=== PATIENT | female | born 1945 | race Caucasian/White ===

== ENCOUNTER → 2017-09-11 | Outpatient (CLI) | payer MEDICARE ==
[~2017-09-11] MED LIST: CALTRATE; CLAR1TAB2 PO; CLAR5TAB PO; FLON0.054; FLUC10TA; IBUPOTC PO; LIPI10TA; LORT5TAB PO; MULTIVIT; OMEP40CA2 PO; TYLE325T5 PO; TYLENOL ELIXIR; ZOCO20TA PO; ZOLO50TA OR; [UNRECOGNIZED DRUG - OTHER]
[2017-09-11 10:26] LABS: BLOOD UREA NITROGEN 11 MG/DL (7-18); CREATININE FOR GFR 0.71 MG/DL (0.55-1.02); GLOMERULAR FILTRATION RATE > 60.0 (>45)
== END ==
LOC: M LAB 09:20
PROVIDERS: ATTEND Surgery
DX: K43.2 Incisional hernia without obstruction or gangrene (principal)

== ENCOUNTER → 2017-10-02 | Outpatient (CLI) | payer MEDICARE ==
[~2017-10-02] MED LIST changes: -CALTRATE; -CLAR1TAB2 PO; -CLAR5TAB PO; -FLON0.054; -FLUC10TA; +GASTROGRAFIN SOLUTION 30ML (Q9963) As Ordered; -IBUPOTC PO; +ISOVUE-370 76% 100ML VIAL (Q9967) As Ordered; -LIPI10TA; -LORT5TAB PO; -MULTIVIT; -OMEP40CA2 PO; -TYLE325T5 PO; -TYLENOL ELIXIR; -ZOCO20TA PO; -ZOLO50TA OR; -[UNRECOGNIZED DRUG - OTHER]
== END ==
LOC: M RAD 10:55
DX: K43.2 Incisional hernia without obstruction or gangrene (principal); K57.90 Diverticulosis of intestine, part unspecified, without perforation or abscess without bleeding
CPT/HCPCS: Q9963

== ENCOUNTER → 2018-04-29 | Outpatient (CLI) | payer MEDICARE ==
[2018-04-29 13:34] LABS: BLOOD UREA NITROGEN 16 MG/DL (7-18)
[2018-04-29 13:34] LABS: CREATININE FOR GFR 0.79 MG/DL (0.55-1.30); GLOMERULAR FILTRATION RATE > 60.0 (>39)
== END ==
LOC: M LAB 12:17
DX: R10.32 Left lower quadrant pain (principal); K43.2 Incisional hernia without obstruction or gangrene
CPT/HCPCS: 82565

== ENCOUNTER → 2018-05-02 | Outpatient (CLI) | payer MEDICARE | LOC: M RAD 15:45 | DX: R10.32 Left lower quadrant pain (principal); K43.2 Incisional hernia without obstruction or gangrene; K44.9 Diaphragmatic hernia without obstruction or gangrene; K57.30 Diverticulosis of large intestine without perforation or abscess without bleeding; M62.00 Separation of muscle (nontraumatic), unspecified site | CPT/HCPCS: Q9963 ==

== ENCOUNTER 2019-07-21 05:49 | Inpatient (IN) | payer MEDICARE ==
[~2019-07-21] VITALS: Ht 157.5 cm; Wt 80.9 kg
[2019-07-21] VITALS (7 sets, daily range): BP systolic 124–138; BP diastolic 77–79
[~2019-07-21 05:49] MED LIST changes: +CALTRATE; +CLAR1TAB2 PO; +CLAR5TAB PO; +FLON0.054; +FLUC10TA; -GASTROGRAFIN SOLUTION 30ML (Q9963) As Ordered; +IBUPOTC PO; -ISOVUE-370 76% 100ML VIAL (Q9967) As Ordered; +LIPI10TA; +LORT5TAB PO; +MECL-86 PO; +MULTIVIT; +OMEP40CA97 PO; +TYLE325T5 PO; +TYLENOL ELIXIR; +ZOCO20TA PO; +ZOLO50TA PO; +[UNRECOGNIZED DRUG - OTHER]
[2019-07-21] MEDS ORDERED: ceFAZolin SOD 1 GM in D5W MINI-BAG PLUS 50 ML IV ONE (06:00)
[2019-07-21 06:27] LABS: HEMATOCRIT 40.5 % (36.0-47.0); HEMOGLOBIN 12.9 g/dl (12.0-15.5); MEAN CORPUSCULAR HEMOGLOBIN 26.4 pg (27.0-33.0); MEAN CORPUSCULAR HGB CONC 31.9 g/dl (32.0-36.5); MEAN CORPUSCULAR VOLUME 82.8 fl (80.0-96.0); PLATELET COUNT, AUTOMATED 242 10^3/uL (150-450); RED BLOOD COUNT 4.89 10^6/uL (4.00-5.40); WHITE BLOOD COUNT 6.2 10^3/uL (4.0-10.0)
[2019-07-21 06:53] LABS: BLOOD UREA NITROGEN 13 MG/DL (7-18); CALCIUM LEVEL 8.5 MG/DL (8.8-10.2); CARBON DIOXIDE LEVEL 29 MEQ/L (21-32); CHLORIDE LEVEL 108 MEQ/L (98-107); GLOMERULAR FILTRATION RATE > 60.0 (>39); GLUCOSE, FASTING 94 MG/DL (70-100); POTASSIUM SERUM 4.1 MEQ/L (3.5-5.1); SODIUM LEVEL 142 MEQ/L (136-145)
[2019-07-21] MEDS ORDERED: BUPIVACAINE HCL 0.25% 30 ML VIAL As Ordered ONE (06:55)
[2019-07-21] MEDS ORDERED: BUPIVACAINE LIPOSOME/PF 1.3% 20ML VIAL (13.3MG/ML)(EXPAREL)(C9290 PER1MG) As Ordered ONE (06:55)
[2019-07-21] MEDS ORDERED: BUPIVACAINE/EPIN 0.25% 30 ML VIAL As Ordered ONE (06:55)
[2019-07-21] MEDS ORDERED: LIDOCAINE 2% INJ 100 MG/5 ML SDV (FOR ANES.) As Ordered ONE (07:16)
[2019-07-21] MEDS ORDERED: PROPOFOL 200 MG/20 ML VIAL As Ordered ONE ×2 (07:16→07:21)
[2019-07-21] MEDS ORDERED: fentaNYL 100 MCG/2 ML INJECTION (J3010) As Ordered ONE ×3 (07:16→09:33)
[2019-07-21] MEDS ORDERED: ONDANSETRON 4MG/2ML VIAL (J2405) As Ordered ONE ×2 (07:17→10:09)
[2019-07-21] MEDS ORDERED: ROCURONIUM BROMIDE 50 MG/5 ML VIAL As Ordered ONE ×2 (07:17→08:52)
[2019-07-21] MEDS ORDERED: dexameTHASONE 4 MG/ML 1ML VIAL (J1100) As Ordered ONE (07:17)
[2019-07-21] MEDS ORDERED: ePHEDrine SULFATE 25 MG/5 ML(5MG/ML) SYRINGE As Ordered ONE (07:55)
[2019-07-21] MEDS ORDERED: ACETAMINOPHEN 1000MG 100ML IV BTL (OFIRMEV) (J0131 PER 10MG) As Ordered ONE (08:13)
[2019-07-21] MEDS ORDERED: SUGAMMADEX SODIUM 500 MG/5 ML VIAL (BRIDION) As Ordered ONE (09:54)
[2019-07-21] MEDS ORDERED: ACETAMINOPHEN TAB 650MG DOSE (2X325MG) PO PRN (10:15)
[2019-07-21] MEDS ORDERED: NALOXONE INJ 0.4 MG/1 ML VIAL (J2310) IV PRN (10:15)
[2019-07-21] MEDS ORDERED: diphenhydrAMINE INJ 50MG/ML VIAL (J1200) IV PRN (10:15)
[2019-07-21] MEDS ORDERED: EPIDURAL/PCA KEYS XX PRN (10:15)
[2019-07-21] MEDS ORDERED: NALBUPHINE HCL 10 MG/ML AMP (J2300) IV PRN (10:15)
[2019-07-21] MEDS ORDERED: ONDANSETRON 4MG/2ML VIAL (J2405) IV PRN ×2 (10:15→11:00)
[2019-07-21] MEDS ORDERED: MORPHINE 1MG/ML IN 0.9% NACL 100ML IV BAG As Ordered ONE ×2 (10:17→10:23)
[2019-07-21] MEDS ORDERED: fentaNYL 100 MCG/2 ML INJECTION (J3010) IV PRN (11:00)
[2019-07-21] MEDS ORDERED: NS 1,000 ML IV SCH (11:00)
[2019-07-21] MEDS ORDERED: LR 1,000 ML IV SCH (11:00)
[2019-07-21] MEDS ORDERED: PERCOCET 5MG/325MG TAB PO PRN (11:00)
[2019-07-21] MEDS ORDERED: METOCLOPRAMIDE INJ 10MG/2ML VIAL (J2765) IV PRN (11:00)
[2019-07-21] MEDS ORDERED: MORPHINE 1MG/ML IN 0.9% NACL 100ML IV BAG IV PRN (11:00)
[2019-07-21] MEDS: KETOROLAC 30 MG/ML VIAL (J1885) IV SCH ×2 (13:17→17:56)
[2019-07-21] MEDS: PANTOPRAZOLE 40MG INJ (PROTONIX) (C9113) IV SCH (13:17)
[2019-07-21] MEDS: NS 1,000 ML IV SCH ×2 (13:18→20:57)
[2019-07-21] MEDS: ALVIMOPAN 12 MG CAPSULE (ENTEREG) PO SCH (20:57)
[2019-07-22] MEDS: KETOROLAC 30 MG/ML VIAL (J1885) IV SCH ×4 (00:41→17:56)
[2019-07-22 01:49] VITALS: BP 139/79
[2019-07-22] MEDS: NS 1,000 ML IV SCH (05:21)
[2019-07-22 06:00] VITALS: BP 139/80
[2019-07-22 06:16] LABS: HEMATOCRIT 34.9 % (36.0-47.0); HEMOGLOBIN 11.1 g/dl (12.0-15.5); MEAN CORPUSCULAR HEMOGLOBIN 26.5 pg (27.0-33.0); MEAN CORPUSCULAR HGB CONC 31.8 g/dl (32.0-36.5); MEAN CORPUSCULAR VOLUME 83.3 fl (80.0-96.0); PLATELET COUNT, AUTOMATED 182 10^3/uL (150-450); RED BLOOD COUNT 4.19 10^6/uL (4.00-5.40); WHITE BLOOD COUNT 7.3 10^3/uL (4.0-10.0)
[2019-07-22 06:42] LABS: BLOOD UREA NITROGEN 11 MG/DL (7-18); CALCIUM LEVEL 8.1 MG/DL (8.8-10.2); CARBON DIOXIDE LEVEL 28 MEQ/L (21-32); CHLORIDE LEVEL 108 MEQ/L (98-107); CREATININE FOR GFR 0.67 MG/DL (0.55-1.30); GLOMERULAR FILTRATION RATE > 60.0 (>39); GLUCOSE, FASTING 113 MG/DL (70-100); POTASSIUM SERUM 3.6 MEQ/L (3.5-5.1); SODIUM LEVEL 141 MEQ/L (136-145)
[2019-07-22] MEDS ORDERED: traMADol 50 MG TAB PO PRN (08:45)
[2019-07-22 10:00] VITALS: BP 139/78
[2019-07-22] MEDS: PANTOPRAZOLE 40MG INJ (PROTONIX) (C9113) IV SCH (10:44)
[2019-07-22] MEDS: ALVIMOPAN 12 MG CAPSULE (ENTEREG) PO SCH ×2 (10:44→21:13)
[2019-07-22 14:00] VITALS: BP 163/84
[2019-07-22 20:00] VITALS: BP 124/56
[2019-07-22 21:25] VITALS: BP 180/68
[2019-07-23 05:41] VITALS: BP 156/62
[2019-07-23 06:14] LABS: HEMATOCRIT 37.3 % (36.0-47.0); HEMOGLOBIN 11.9 g/dl (12.0-15.5); MEAN CORPUSCULAR HEMOGLOBIN 26.6 pg (27.0-33.0); MEAN CORPUSCULAR HGB CONC 31.9 g/dl (32.0-36.5); MEAN CORPUSCULAR VOLUME 83.4 fl (80.0-96.0); PLATELET COUNT, AUTOMATED 183 10^3/uL (150-450); RED BLOOD COUNT 4.47 10^6/uL (4.00-5.40); WHITE BLOOD COUNT 7.5 10^3/uL (4.0-10.0)
[2019-07-23 06:40] LABS: BLOOD UREA NITROGEN 7 MG/DL (7-18); CALCIUM LEVEL 8.5 MG/DL (8.8-10.2); CARBON DIOXIDE LEVEL 27 MEQ/L (21-32); CHLORIDE LEVEL 104 MEQ/L (98-107); CREATININE FOR GFR 0.54 MG/DL (0.55-1.30); GLOMERULAR FILTRATION RATE > 60.0 (>39); GLUCOSE, FASTING 96 MG/DL (70-100); POTASSIUM SERUM 3.2 MEQ/L (3.5-5.1); SODIUM LEVEL 138 MEQ/L (136-145)
[2019-07-23] MEDS: PANTOPRAZOLE 40MG INJ (PROTONIX) (C9113) IV SCH ×2 (09:00→09:50)
[2019-07-23] MEDS: ALVIMOPAN 12 MG CAPSULE (ENTEREG) PO SCH (09:50)
[2019-07-23 10:28] VITALS: BP 179/90
[2019-07-23] MEDS ORDERED: ACET1TAB55 PO (10:37)
--- NOTE | 2019-08-04 20:02 | DSES ---
DATE OF ADMISSION: 07/21/2019 DATE OF DISCHARGE: 07/23/2019 PRINCIPLE DIAGNOSIS: Incisional hernia. ASSOCIATED DIAGNOSES: 1. History of hypercholesterolemia. 2. Gastroesophageal reflux. 3. Vertigo. 4. Appendectomy. 5. Cholecystectomy. 6. Hernia repairs. 7. Anxiety. BRIEF HISTORY OF PRESENT ILLNESS: Patient is a 73-year-old female who presents with a recurrent incisional hernia along the midline with increasing symptoms, increasing size of the hernia and pain and discomfort. HOSPITAL COURSE SUMMARY: The patient was admitted with the above diagnosis. Given the relatively large hernia, this was closed in a combined open technique as well as a laparoscopic hybrid operation. Essentially, the patient tolerated the procedure adequately and postoperatively she had good pain relief. She was discharged home on her usual medications, which include the following: - Flonase - meclizine - omeprazole - Zoloft - Zocor - She was taking only Tylenol for discomfort at discharge She was to follow up in my office for in one week for suture removal and follow up with her primary care provider as previously scheduled.
--- NOTE | 2019-08-04 20:24 | RO ---
DATE OF PROCEDURE: 07/21/2019 PREOPERATIVE DIAGNOSIS: Incisional hernia. POSTOPERATIVE DIAGNOSIS: Incisional hernia. OPERATIVE PROCEDURE: 1. Open laparotomy with lysis of adhesions. 2. Laparoscopic ventral hernia repair. SURGEON: Keven Cruz MD D[employer] OUT WORKER: ANESTHESIA: General endotracheal anesthesia. ESTIMATED BLOOD LOSS: Minimal. FLUIDS: Crystalloid. DESCRIPTION OF PROCEDURE: The patient was brought to the operating room was given general anesthesia. After adequate anesthesia and preoperative antibiotics were given the patient was prepped and draped in the usual sterile fashion. Next a midline incision including the previous incision was made with skin knife. Electrocautery was used cut through dermis, underlying subcutaneous tissue down to the hernia sac itself. This was followed laterally and then mobilized off the muscle on the rectus muscle on the left-hand side and then off the mesh that was more medially, which had been lifted off the rectus muscle laterally. This was followed inferiorly and superiorly and eventually once I was able to get around this adequately, I was able to get into the peritoneal cavity. However, there were a great deal of adhesions along the midline and I did need to leave some of the fascia, some scar tissue with this area on the bowel itself taking care of not to leave any mesh or any other significant abnormality present on the bowel. The dissection continued inferiorly where there was mesh covering as an onlay but there was no posterior fascia that was approximated in the middle. In any case, the dissection continued inferiorly and then eventually I was able to pop into the true peritoneal cavity. Originally I anticipate that most of the dissection was inflamed/scar tissue and maybe even preperitoneal space, but eventually after coming inferior in the left lower quadrant down into the pelvis, the peritoneum was nicely seen and it was followed circumferentially all around the incision and this was brought down nicely throughout. Eventually after a significant amount of time taking down a lot of adhesions, at this point it seemed that the midline could come together without undue tension and I felt that she would benefit from not a repeat of the onlay mesh but a preperitoneal approach and thus placing a laparoscopic mesh underneath a midline closure. Thus a 5 mm lateral trocar was placed under direct visualization to allow for insufflation and placement of the other trocars and then the midline was closed in a running manner with looped #0 PDS. Once this was closed the lateral trocars were placed and a ventral light mesh which had been placed in there previously prior to closure of the fascia was sewn in place with secure straps circumferentially. All trocars removed under direct visualization and the midline incision then was closed in two layers with #2-0 Vicryl, deep layer and tono. Tono were used to approximate the skin laterally and the patient was awakened, extubated, brought to the recovery room awake, alert and hemodynamically stable. Sponge and needle counts correct times two.
== END 2019-07-23 12:40 | disposition home or self-care (01) | DRG 355 ==
LOC: M OR 05:49 → M MS5PR 12:30
PROVIDERS: ADMIT Surgery; ATTEND Surgery
PROC: 0WUF0JZ Supplement Abdominal Wall with Synthetic Substitute, Open Approach (ICD-10-PCS; principal; 2019-07-21 07:30)
DX: K43.2 Incisional hernia without obstruction or gangrene (principal); E78.00 Pure hypercholesterolemia, unspecified; F41.9 Anxiety disorder, unspecified

== ENCOUNTER 2019-07-30 17:23 | Emergency (ER) | payer MEDICARE ==
[~2019-07-30] VITALS: Ht 157.5 cm; Wt 77.0 kg
[~2019-07-30 17:23] MED LIST changes: +ACET1TAB55 PO
[2019-07-30] MEDS ORDERED: NAPR220C14 PO (17:45)
[2019-07-30] MEDS ORDERED: HYDROMORPHONE HCL 0.5 MG/ 0.5 ML SYRINGE (J1170 PER 1) IV PRN (18:45)
[2019-07-30 18:53] LABS: BASO % 0.4 % (0.0-1.0); EOS # 0.1 10^3/uL (0.0-0.5); EOS % 1.2 % (0.0-3.0); HEMATOCRIT 39.2 % (36.0-47.0); HEMOGLOBIN 12.5 g/dl (12.0-15.5); LYMPH # 1.2 10^3/uL (1.5-5.0); LYMPH % 16.3 % (24.0-44.0); MEAN CORPUSCULAR HEMOGLOBIN 26.7 pg (27.0-33.0); MEAN CORPUSCULAR HGB CONC 31.9 g/dl (32.0-36.5); MEAN CORPUSCULAR VOLUME 83.6 fl (80.0-96.0); MONO # 0.5 10^3/uL (0.0-0.8); NEUTROPHILS # 5.4 10^3/uL (1.5-8.5); NEUTROPHILS % 74.5 % (36.0-66.0); PLATELET COUNT, AUTOMATED 273 10^3/uL (150-450); RED BLOOD COUNT 4.69 10^6/uL (4.00-5.40); WHITE BLOOD COUNT 7.2 10^3/uL (4.0-10.0)
[2019-07-30] MEDS ORDERED: NS 1,000 ML IV SCH (19:07)
[2019-07-30 19:13] LABS: ALBUMIN 3.1 GM/DL (3.2-5.2); ALT/SGPT 18 U/L (12-78); BILIRUBIN,DIRECT 0.2 MG/DL (0.0-0.2); BILIRUBIN,TOTAL 0.5 MG/DL (0.2-1.0); BLOOD UREA NITROGEN 13 MG/DL (7-18); CALCIUM LEVEL 8.6 MG/DL (8.8-10.2); CARBON DIOXIDE LEVEL 28 MEQ/L (21-32); CHLORIDE LEVEL 108 MEQ/L (98-107); CREATININE FOR GFR 0.64 MG/DL (0.55-1.30); GLOMERULAR FILTRATION RATE > 60.0 (>39); GLUCOSE, FASTING 100 MG/DL (70-100); LIPASE 196 U/L (73-393); POTASSIUM SERUM 4.2 MEQ/L (3.5-5.1); SODIUM LEVEL 142 MEQ/L (136-145); TOTAL PROTEIN 6.3 GM/DL (6.4-8.2)
[2019-07-30] MEDS: GASTROGRAFIN SOLUTION 30ML PO SCH ×2 (19:56→20:14)
[2019-07-30] MEDS ORDERED: ISOVUE-370 76% 100ML VIAL (Q9967) As Ordered ONE (20:40)
--- NOTE | 2019-07-30 22:06 | REPVR ---
PROCEDURE INFORMATION: Exam: CT Abdomen And Pelvis With Contrast Exam date and time: 07/30/2019 9:14 PM Clinical history: 73 years old, female; Abdominal pain; Generalized; Prior surgery; Surgery date: Post-operative (0-2 days); Surgery type: Had hernia repair sheron; Additional info: Gen abd pain S/P ventral hernia repair TECHNIQUE: Imaging protocol: Computed tomography of the abdomen and pelvis with intravenous contrast. Radiation optimization: All CT scans at this facility use at least one of these dose optimization techniques: automated exposure control; mA and/or kV adjustment per patient size (includes targeted exams where dose is matched to clinical indication); or iterative reconstruction. Contrast material: ISOVUE 370; Contrast volume: 100 ml; Contrast route: IV; COMPARISON: CT ABD PELVIS W/O FOL BY WIT 05/02/2018 5:31 PM FINDINGS: Mediastinum: There is a small hiatal hernia. Liver: Normal. No mass. Gallbladder and bile ducts: There has been prior cholecystectomy. No biliary duct dilation. Pancreas: Normal. No ductal dilation. Spleen: Normal. No splenomegaly. Adrenals: Normal. No mass. Kidneys and ureters: Normal. No hydronephrosis. Stomach and bowel: No herniated bowel loops are seen. Postoperative changes in the distal small bowel. Mild wall thickening in the small bowel in the midline anterior abdomen. No bowel obstruction. Colonic diverticulosis without evidence of diverticulitis. Appendix: No evidence of appendicitis. Intraperitoneal space: Mild intraperitoneal free fluid. Mild edema in the anterior mesentery. No intraperitoneal abscess. Vasculature: Unremarkable. No abdominal aortic aneurysm. Lymph nodes: Unremarkable. No enlarged lymph nodes. Bladder: Unremarkable as visualized. Reproductive: Unremarkable as visualized. Bones/joints: There are degenerative changes in the spine and pelvis. Soft tissues: Changes of prior abdominal wall hernia repair are noted. There is loculated fluid in the anterior abdominal wall subcutaneous tissues with 2 separate pockets measuring 4.9 cm and 3.5 cm. Both fluid pockets contain a small amount of air. Associated subcutaneous edema. There is a thin layering collection with fluid along the anterior peritoneum measuring up to 10 mm thick extending transversely across the length of the intra-abdominal wall. Mild enhancement around the anterior fluid collection. IMPRESSION: 1. Interval abdominal wall hernia repair. Small pockets of fluid in the anterior abdominal wall subcutaneous tissues. Additional layering fluid collection along the peritoneal surface of the anterior abdomen with mild enhancement may be a residual seroma, but superimposed infection cannot be excluded. 2. Mild edema in the mesentery and some small bowel loops, possibly reactive with versus mild enteritis. No intraperitoneal abscess. 3. Small hiatal hernia. Electronically signed by: Hima Zepeda On 07/30/2019 22:06:28 PM
[2019-07-30] MEDS ORDERED: ZOFR4TAB16 PO (23:14)
[2019-07-30 23:21] VITALS: BP 173/82
--- NOTE | 2019-08-01 07:20 | ED PDOC ---
Post-Departure Follow-Up radiology report faxed to Selina Heaton MD Aug 01, 2019 07:20
== END 2019-07-30 23:23 | disposition home or self-care (01) ==
LOC: M ED 17:23 → EDBD 17:23 → M ED 23:23
DX: G89.18 Other acute postprocedural pain (principal); R10.9 Unspecified abdominal pain; E11.9 Type 2 diabetes mellitus without complications; E78.5 Hyperlipidemia, unspecified; F41.9 Anxiety disorder, unspecified; Z79.899 Other long term (current) drug therapy; Z88.0 Allergy status to penicillin
CPT/HCPCS: 36415; 74177; 80048; 80076; 83690; 85025; 93041; 96374; 99284; J1170; Q9963; Q9967

== ENCOUNTER → 2019-09-07 | Outpatient (REF) | payer MEDICARE ==
[~2019-09-07] MED LIST changes: +NAPR220C14 PO; +ZOFR4TAB16 PO
== END ==
LOC: M LAB REF 14:49
PROVIDERS: ATTEND Registered Nurse
DX: R19.7 Diarrhea, unspecified (principal)

== ENCOUNTER → 2020-02-02 | Outpatient (CLI) | payer MEDICARE | LOC: M LABSMTC 13:53 | PROVIDERS: ATTEND Family Medicine | DX: Z11.59 Encounter for screening for other viral diseases (principal); Z20.828 Contact with and (suspected) exposure to other viral communicable diseases | CPT/HCPCS: C9803; U0003 ==

== ENCOUNTER → 2020-06-10 | Outpatient (CLI) | payer SELFPAY | LOC: M LABSMTC 13:17 | PROVIDERS: ATTEND Pediatrics | DX: Z20.828 Contact with and (suspected) exposure to other viral communicable diseases (principal) ==

== ENCOUNTER → 2020-08-15 | Outpatient (REF) | payer MEDICARE | LOC: M LAB REF 11:28 | PROVIDERS: ATTEND Family Medicine | DX: Z01.89 Encounter for other specified special examinations (principal) ==

== ENCOUNTER → 2020-11-16 | Outpatient (REF) | payer MEDICARE | LOC: M LAB REF 16:11 | DX: N63.13 Unspecified lump in the right breast, lower outer quadrant (principal) ==

== ENCOUNTER → 2021-04-28 | Outpatient (CLI) | payer MEDICARE ==
[~2021-04-28] MED LIST changes: +OMEP40CA4 PO; -OMEP40CA97 PO
--- NOTE | 2021-04-28 11:09 | REP ---
INDICATION: 6 MONTH F/U BENIGN BX RIGHT BREAST. COMPARISON: Multiple the latest 11/16/2020 status post benign biopsy TECHNIQUE: CC and MLO views of the right breast were obtained using digital technique in both 2D and 3D modalities and compared to the prior exams. FINDINGS: The right breast is unchanged in size and shape. Once again, dense heterogenous nodular fibroglandular elements are seen throughout the right breast to such a degree that the sensitivity of the mammogram in detecting cancer is decreased. Stable benign appearing calcifications are again seen throughout the right breast. Some of these are in groups but no one group is more suspicious than any other. No venkat soft tissue densities or areas of spiculation or internal architectural distortion have developed. There is no skin thickening or nipple retraction. There is no change in the biopsy clip. One performing the MLO view a dark discharge was expressed from the nipple. The technologist asked the patient if this has happened in the past and the patient responded with "this has happened during my last few mammograms" The Volpara volumetric breast density pattern is C. IMPRESSION: BIRADS/ACR category 2 benign findings. There is no mammographic evidence of malignant alteration of the right breast. Since the patient has complaints of nipple discharge ductography and or breast MRI is recommended. Due to the patient's breast density score of C bilateral breast MRI is recommended.. This patient's Tyrer-Cuzick lifetime breast cancer risk assessment score is 12.3%. This mammogram was interpreted with the aid of an FDA-approved computer-aided detection system. The patient states she had a clinical breast exam in over a year. The patient letter being requested is M1. RECOMMENDATION: As above <Electronically signed by Candelario Brantley > 04/28/21 [id number]
== END ==
LOC: M WHC 09:29
PROVIDERS: ATTEND Family Medicine
DX: R92.1 Mammographic calcification found on diagnostic imaging of breast (principal); N64.52 Nipple discharge
CPT/HCPCS: 77065; G0279

== ENCOUNTER → 2022-06-20 | Outpatient (CLI) | payer MEDICARE ==
[~2022-06-20] MED LIST changes: -CLAR5TAB PO; +DESL5TAB28 PO; +SIMV-253 PO; -ZOCO20TA PO
== END ==
LOC: M RAD 14:21
PROVIDERS: ATTEND Family Medicine
DX: M16.12 Unilateral primary osteoarthritis, left hip (principal); M25.551 Pain in right hip

== ENCOUNTER → 2022-11-01 | Outpatient (CLI) | payer MEDICARE | LOC: M WHC 13:01 | PROVIDERS: ATTEND Family Medicine | DX: Z12.4 Encounter for screening for malignant neoplasm of cervix (principal); Z13.820 Encounter for screening for osteoporosis; M85.851 Other specified disorders of bone density and structure, right thigh; M85.852 Other specified disorders of bone density and structure, left thigh; Z80.3 Family history of malignant neoplasm of breast ==

== ENCOUNTER → 2022-12-25 | Outpatient (CLI) | payer MEDICARE | LOC: M RAD 14:52 | PROVIDERS: ATTEND Family Medicine | DX: M25.551 Pain in right hip (principal); M16.11 Unilateral primary osteoarthritis, right hip ==

== ENCOUNTER 2023-02-18 19:13 | Emergency (ER) | payer MEDICARE, BC ==
[2023-02-18 20:31] LABS: RSV AMPLIFICATION NEGATIVE (NEGATIVE)
[2023-02-18] MEDS ORDERED: NS 1,000 ML IV ONE (22:35)
[2023-02-18] MEDS ORDERED: IBUPROFEN 600MG TAB PO ONE (22:35)
[2023-02-18 23:21] LABS: BASO % 0.1 % (0.0-1.0); EOS % 0.1 % (0.0-3.0); HEMATOCRIT 38.8 % (36.0-47.0); HEMOGLOBIN 12.5 g/dl (12.0-15.5); LYMPH # 1.7 10^3/uL (1.5-5.0); LYMPH % 18.1 % (24.0-44.0); MEAN CORPUSCULAR HEMOGLOBIN 26.2 pg (27.0-33.0); MEAN CORPUSCULAR HGB CONC 32.2 g/dl (32.0-36.5); MEAN CORPUSCULAR VOLUME 81.3 fl (80.0-96.0); MONO # 0.7 10^3/uL (0.0-0.8); NEUTROPHILS # 6.8 10^3/uL (1.5-8.5); NEUTROPHILS % 73.4 % (36.0-66.0); PLATELET COUNT, AUTOMATED 178 10^3/uL (150-450); RED BLOOD COUNT 4.77 10^6/uL (4.00-5.40); WHITE BLOOD COUNT 9.2 10^3/uL (4.0-10.0)
[2023-02-19] MEDS ORDERED: BACTRIM 160MG/800MG DS TAB PO ONE (00:30)
[2023-02-19] MEDS ORDERED: BACT800T5 PO (00:35)
[2023-02-19 00:57] VITALS: BP 146/84
== END 2023-02-19 00:59 | disposition home or self-care (01) ==
LOC: M ED 19:13
DX: J06.9 Acute upper respiratory infection, unspecified (principal); N39.0 Urinary tract infection, site not specified; Z79.899 Other long term (current) drug therapy; Z88.0 Allergy status to penicillin

== ENCOUNTER → 2023-02-22 | Outpatient (REF) | payer MEDICARE, BC ==
[~2023-02-22] MED LIST changes: +BACT800T5 PO
[2023-02-22 16:51] LABS: INR 0.98; PROTHROMBIN TIME 13.2 SECONDS (12.5-14.5)
[2023-02-22 16:52] LABS: PARTIAL THROMBOPLASTIN TIME 26.9 SECONDS (24.8-34.2)
[2023-02-22 17:16] LABS: APPEARANCE, URINE HAZY (CLEAR); BACTERIA, URINE AUTO 1+ (NEGATIVE); BILIRUBIN, URINE AUTO NEGATIVE (NEGATIVE); BLOOD, URINE BLOOD NEGATIVE (NEGATIVE); COLOR, URINE YELLOW (YELLOW); GLUCOSE, URINE (UA) AUTO NEGATIVE (NEGATIVE); KETONE, URINE AUTO NEGATIVE (NEGATIVE); LEUKOCYTE ESTERASE, URINE AUTO 3+ (NEGATIVE); MUCUS, URINE SMALL (NEGATIVE); NITRITE, URINE AUTO NEGATIVE (NEGATIVE); PROTEIN, URINE AUTO NEGATIVE (NEGATIVE); RBC, URINE AUTO 3 /HPF (0-3); SPECIFIC GRAVITY URINE AUTO 1.024 (1.002-1.035); SQUAMOUS EPITHELIAL CELL UR AU 9 /HPF (0-6); UROBILINOGEN, URINE AUTO 0.2 mg/dL (0.0-2.0); WBC, URINE AUTO 7 /HPF (0-3)
== END ==
LOC: M LAB REF 16:21
PROVIDERS: ATTEND Family Medicine
DX: Z01.818 Encounter for other preprocedural examination (principal); Z79.899 Other long term (current) drug therapy

== ENCOUNTER 2023-04-09 06:50 | Observation (INO) | payer MEDICARE, BC ==
[~2023-04-09] VITALS: Ht 157.5 cm; Wt 74.9 kg
[2023-04-09] MEDS ORDERED: NS 1,000 ML IV ONE ×2 (07:55→11:20)
[2023-04-09 08:04] LABS: BASO % 0.5 % (0.0-1.0); EOS % 0.3 % (0.0-3.0); HEMATOCRIT 32.9 % (36.0-47.0); HEMOGLOBIN 10.6 g/dl (12.0-15.5); LYMPH # 1.3 10^3/uL (1.5-5.0); LYMPH % 19.2 % (24.0-44.0); MEAN CORPUSCULAR HGB CONC 32.2 g/dl (32.0-36.5); MEAN CORPUSCULAR VOLUME 80.8 fl (80.0-96.0); MONO # 0.6 10^3/uL (0.0-0.8); MONO % 8.8 % (2.0-8.0); NEUTROPHILS # 4.6 10^3/uL (1.5-8.5); NEUTROPHILS % 70.9 % (36.0-66.0); PLATELET COUNT, AUTOMATED 267 10^3/uL (150-450); RED BLOOD COUNT 4.07 10^6/uL (4.00-5.40); WHITE BLOOD COUNT 6.5 10^3/uL (4.0-10.0)
[2023-04-09] MEDS ORDERED: HYDR-3713 PO (08:17)
[2023-04-09 08:32] LABS: ALBUMIN 3.2 G/DL (3.2-5.2); ALKALINE PHOSPHATASE 98 U/L (46-116); ALT/SGPT < 9 U/L (7.0-40); AST/SGOT < 8 U/L (<34); BILIRUBIN,DIRECT 0.2 MG/DL (<0.4); BILIRUBIN,TOTAL 0.6 MG/DL (0.3-1.2); BLOOD UREA NITROGEN 28 MG/DL (9-23); CALCIUM LEVEL 8.8 MG/DL (8.3-10.6); CARBON DIOXIDE LEVEL 22 MMOL/L (20-31); CHLORIDE LEVEL 100 MMOL/L (98-107); CK-MB VALUE MASS < 1.0 NG/ML (<3.6); CPK CREATINE PHOSPHOKINASE 40 U/L (34-145); CREATININE FOR GFR 1.55 MG/DL (0.55-1.30); GLOMERULAR FILTRATION RATE 34.7 (>39); GLUCOSE, FASTING 148 MG/DL (74-106); POTASSIUM SERUM 3.1 MMOL/L (3.5-5.1); SODIUM LEVEL 136 MMOL/L (136-145); TOTAL PROTEIN 6.3 G/DL (5.7-8.2)
[2023-04-09 09:12] LABS: CK-MB VALUE MASS < 1.0 NG/ML (<3.6)
[2023-04-09 09:13] LABS: CPK CREATINE PHOSPHOKINASE 37 U/L (34-145)
[2023-04-09] MEDS ORDERED: POTASSIUM CHLORIDE 10MEQ SR TABLET PO ONE ×2 (12:25→15:00)
[2023-04-09] MEDS ORDERED: MED REC IN PROGRESS XX SCH (12:50)
[2023-04-09] MEDS ORDERED: ZOLO100T PO (13:20)
[2023-04-09] MEDS ORDERED: ASPI81TA26 PO (13:23)
[2023-04-09] MEDS ORDERED: CELE0.09 PO (13:23)
[2023-04-09] MEDS ORDERED: ATOR1TAB21 PO (13:23)
[2023-04-09] MEDS ORDERED: HOME MED LIST COMPLETE! XX SCH (13:30)
[2023-04-09] MEDS ORDERED: ACETAMINOPHEN TAB 650MG DOSE (2X325MG) PO PRN (13:55)
[2023-04-09 14:32] LABS: FREE T4 1.27 NG/DL (0.89-1.76)
[2023-04-09 15:30] VITALS: BP 119/60; TEMP 98.1; O2SAT 95
[2023-04-09] MEDS: LACTOBACILLUS ACIDOPHILUS CAP (BACID) PO SCH (18:38)
[2023-04-09] MEDS ORDERED: ATORVASTATIN 20 MG TAB PO SCH (21:00)
[2023-04-09 21:17] VITALS: BP 148/69; TEMP 96.8; O2SAT 96
[2023-04-09] MEDS: ASPIRIN 81MG ENTERIC TABLET PO SCH (21:23)
[2023-04-09] MEDS: HEPARIN SOD (PORCINE) 5000UNITS/ML 1ML VIAL/SYRINGE SC SCH (21:23)
[2023-04-10 05:20] VITALS: BP 142/65; TEMP 97.5; O2SAT 97
[2023-04-10] MEDS: HEPARIN SOD (PORCINE) 5000UNITS/ML 1ML VIAL/SYRINGE SC SCH (06:13)
[2023-04-10 06:31] LABS: HEMATOCRIT 29.6 % (36.0-47.0); HEMOGLOBIN 9.3 g/dl (12.0-15.5); MEAN CORPUSCULAR HEMOGLOBIN 26.3 pg (27.0-33.0); MEAN CORPUSCULAR HGB CONC 31.4 g/dl (32.0-36.5); MEAN CORPUSCULAR VOLUME 83.6 fl (80.0-96.0); PLATELET COUNT, AUTOMATED 218 10^3/uL (150-450); RED BLOOD COUNT 3.54 10^6/uL (4.00-5.40); WHITE BLOOD COUNT 3.6 10^3/uL (4.0-10.0)
[2023-04-10 06:57] LABS: BLOOD UREA NITROGEN 16 MG/DL (9-23); CARBON DIOXIDE LEVEL 25 MMOL/L (20-31); CHLORIDE LEVEL 109 MMOL/L (98-107); GLOMERULAR FILTRATION RATE > 60.0 (>39); GLUCOSE, FASTING 98 MG/DL (74-106); MAGNESIUM LEVEL 1.9 MG/DL (1.8-2.4); POTASSIUM SERUM 3.9 MMOL/L (3.5-5.1); SODIUM LEVEL 143 MMOL/L (136-145)
[2023-04-10] MEDS: LACTOBACILLUS ACIDOPHILUS CAP (BACID) PO SCH (08:04)
[2023-04-10] MEDS: ASPIRIN 81MG ENTERIC TABLET PO SCH (08:04)
[2023-04-10] MEDS ORDERED: SERTRALINE 100 MG TAB PO SCH (09:00)
[2023-04-10] MEDS ORDERED: OMEPRAZOLE 20MG CAP PO SCH (09:00)
[2023-04-10] MEDS ORDERED: PREVNAR-20 VACCINE 0.5ML SYRINGE IM.IMMUN ONE (09:00)
[2023-04-10] MEDS ORDERED: RISATAB3 PO (10:28)
== END 2023-04-10 12:03 | disposition home or self-care (01) ==
LOC: M ED 06:50 → M ED INP 06:51 → ENRESERV 14:44 → M MSPAV 15:29
PROVIDERS: ADMIT Family Medicine; ATTEND Family Medicine
DX: K52.9 Noninfective gastroenteritis and colitis, unspecified (principal); E78.5 Hyperlipidemia, unspecified; K21.9 Gastro-esophageal reflux disease without esophagitis; R53.83 Other fatigue; R79.89 Other specified abnormal findings of blood chemistry; Z79.82 Long term (current) use of aspirin; Z79.899 Other long term (current) drug therapy; N39.0 Urinary tract infection, site not specified; B96.89 Other specified bacterial agents as the cause of diseases classified elsewhere
CPT/HCPCS: 36415; 71045; 80048; 80076; 81001; 82550; 82553; 83605; 83735; 84439; 84443; 84484; 85025; 85027; 87040; 87088; 87486; 87507; 87581; 87633; 87798; 90677; 93005; 96372; 96374; 96376; 97161; 99285; G0009; G0378

== ENCOUNTER 2023-10-04 07:51 | Inpatient (IN) | payer MEDICARE, BC ==
[~2023-10-04 07:51] MED LIST changes: +ASPI81TA26 PO; +ATOR1TAB21 PO; +CELE0.09 PO; +HYDR-3713 PO; +RISATAB3 PO; +ZOLO100T PO
[2023-10-04] MEDS ORDERED: ACETAMINOPHEN 500 MG TAB PO ONE (08:10)
[2023-10-04 08:38] LABS: BASO % 0.2 % (0.0-1.0); HEMATOCRIT 40.5 % (36.0-47.0); LYMPH # 0.9 10^3/uL (1.5-5.0); LYMPH % 8.9 % (24.0-44.0); MEAN CORPUSCULAR HEMOGLOBIN 25.3 pg (27.0-33.0); MEAN CORPUSCULAR HGB CONC 32.1 g/dl (32.0-36.5); MEAN CORPUSCULAR VOLUME 78.8 fl (80.0-96.0); MONO # 0.9 10^3/uL (0.0-0.8); MONO % 9.2 % (2.0-8.0); NEUTROPHILS # 8.3 10^3/uL (1.5-8.5); NEUTROPHILS % 81.4 % (36.0-66.0); PLATELET COUNT, AUTOMATED 153 10^3/uL (150-450); RED BLOOD COUNT 5.14 10^6/uL (4.00-5.40); WHITE BLOOD COUNT 10.1 10^3/uL (4.0-10.0)
[2023-10-04] MEDS: NS 1,000 ML IV SCH ×2 (08:44→18:01)
[2023-10-04 09:00] LABS: ALBUMIN 3.6 G/DL (3.2-5.2); ALKALINE PHOSPHATASE 82 U/L (46-116); ALT/SGPT 11 U/L (7.0-40); AST/SGOT 16 U/L (<34); BILIRUBIN,TOTAL 1.5 MG/DL (0.3-1.2); BLOOD UREA NITROGEN 11 MG/DL (9-23); CALCIUM LEVEL 8.3 MG/DL (8.3-10.6); CARBON DIOXIDE LEVEL 27 MMOL/L (20-31); CHLORIDE LEVEL 102 MMOL/L (98-107); GLOMERULAR FILTRATION RATE > 60.0 (>39); GLUCOSE, FASTING 152 MG/DL (74-106); SODIUM LEVEL 138 MMOL/L (136-145); TOTAL PROTEIN 6.7 G/DL (5.7-8.2)
[2023-10-04] MEDS ORDERED: KCL 10MEQ/100ML SWI (KRUN) 10 MEQ in IV 1 EA IV ONE (09:05)
[2023-10-04] MEDS ORDERED: POTASSIUM CHLORIDE 10MEQ SR TABLET PO ONE (09:05)
[2023-10-04] MEDS ORDERED: ISOVUE-370 76% 100ML VIAL As Ordered ONE (13:28)
[2023-10-04] MEDS ORDERED: cefTRIAXone SOD 2 GM in D5W MINI-BAG PLUS 50 ML IV ONE (15:00)
[2023-10-04] MEDS ORDERED: NS 1,000 ML IV ONE (15:45)
[2023-10-04] MEDS ORDERED: atenoloL 25 MG TAB PO ONE (16:05)
[2023-10-04] MEDS ORDERED: FIORICET TAB PO ONE (16:05)
[2023-10-04] MEDS ORDERED: METOCLOPRAMIDE INJ 10MG/2ML VIAL IV ONE (16:05)
[2023-10-04 16:57] VITALS: BP 136/73; TEMP 102.7; O2SAT 93
[2023-10-04] MEDS ORDERED: MED REC IN PROGRESS XX SCH (17:20)
[2023-10-04] MEDS ORDERED: KETOROLAC 30 MG/ML 1ML VIAL IV ONE (17:45)
[2023-10-04] MEDS: metroNIDAZOLE 500 MG in IV 1 EA IV SCH (18:00)
[2023-10-04] MEDS: LACTOBACILLUS ACIDOPHILUS CAP (BACID) PO SCH ×2 (18:00→20:10)
[2023-10-04] MEDS ORDERED: HOME MED LIST COMPLETE! XX SCH (18:20)
[2023-10-04 20:00] VITALS: TEMP 98.8; O2SAT 92
[2023-10-04] MEDS: ATORVASTATIN 20 MG TAB PO SCH (20:10)
[2023-10-04 23:35] VITALS: TEMP 99.9
[2023-10-05] VITALS (8 sets, daily range): BP systolic 129–143; BP diastolic 60–66; TEMP 96.4–102.1; O2SAT 91–93
[2023-10-05] MEDS ORDERED: ACETAMINOPHEN TAB 650MG DOSE (2X325MG) PO ONE (00:25)
[2023-10-05] MEDS: metroNIDAZOLE 500 MG in IV 1 EA IV SCH ×3 (00:54→17:07)
[2023-10-05] MEDS: LOPERAMIDE 2 MG CAPLET PO PRN ×2 (00:55→12:15)
[2023-10-05] MEDS: NS 1,000 ML IV SCH ×2 (06:54→18:32)
[2023-10-05] MEDS ORDERED: FIORICET TAB PO PRN (08:00)
[2023-10-05] MEDS ORDERED: RIZATRIPTAN BENZOATE 10 MG TAB PO ONE (08:00)
[2023-10-05] MEDS ORDERED: FIORICET TAB PO ONE (08:00)
[2023-10-05] MEDS ORDERED: METOCLOPRAMIDE INJ 10MG/2ML VIAL IV ONE (08:00)
[2023-10-05] MEDS: SERTRALINE 100 MG TAB PO SCH (08:32)
[2023-10-05] MEDS: OMEPRAZOLE 20MG CAP PO SCH (08:33)
[2023-10-05] MEDS: LACTOBACILLUS ACIDOPHILUS CAP (BACID) PO SCH ×4 (08:33→20:08)
[2023-10-05] MEDS: cefTRIAXone SOD 2 GM in D5W MINI-BAG PLUS 50 ML IV SCH (08:35)
[2023-10-05 13:08] LABS: BASO % 0.1 % (0.0-1.0); HEMATOCRIT 35.5 % (36.0-47.0); HEMOGLOBIN 11.1 g/dl (12.0-15.5); LYMPH # 0.9 10^3/uL (1.5-5.0); LYMPH % 12.1 % (24.0-44.0); MEAN CORPUSCULAR HEMOGLOBIN 24.9 pg (27.0-33.0); MEAN CORPUSCULAR HGB CONC 31.3 g/dl (32.0-36.5); MEAN CORPUSCULAR VOLUME 79.8 fl (80.0-96.0); MONO # 0.5 10^3/uL (0.0-0.8); MONO % 6.3 % (2.0-8.0); NEUTROPHILS # 6.1 10^3/uL (1.5-8.5); NEUTROPHILS % 81.1 % (36.0-66.0); PLATELET COUNT, AUTOMATED 136 10^3/uL (150-450); RED BLOOD COUNT 4.45 10^6/uL (4.00-5.40); WHITE BLOOD COUNT 7.5 10^3/uL (4.0-10.0)
[2023-10-05 13:18] LABS: ERYTHROCYTE SEDIMENTATION RATE 32 mm/hr (0-30)
[2023-10-05 13:35] LABS: BLOOD UREA NITROGEN 15 MG/DL (9-23); CALCIUM LEVEL 7.6 MG/DL (8.3-10.6); CARBON DIOXIDE LEVEL 24 MMOL/L (20-31); CHLORIDE LEVEL 109 MMOL/L (98-107); CREATININE FOR GFR 0.91 MG/DL (0.55-1.30); GLOMERULAR FILTRATION RATE > 60.0 (>39); GLUCOSE, FASTING 116 MG/DL (74-106); SODIUM LEVEL 142 MMOL/L (136-145)
[2023-10-05 13:43] LABS: PROCALCITONIN 1.35 ng/ml
[2023-10-05] MEDS: ACETAMINOPHEN TAB 650MG DOSE (2X325MG) PO PRN (17:35)
[2023-10-05] MEDS: ATORVASTATIN 20 MG TAB PO SCH (20:08)
[2023-10-06] MEDS: metroNIDAZOLE 500 MG in IV 1 EA IV SCH ×3 (01:51→17:34)
[2023-10-06 06:00] VITALS: BP 143/72; TEMP 100.8; O2SAT 92
[2023-10-06] MEDS: NS 1,000 ML IV SCH ×2 (06:07→09:38)
[2023-10-06] MEDS: cefTRIAXone SOD 2 GM in D5W MINI-BAG PLUS 50 ML IV SCH (07:17)
[2023-10-06] MEDS: OMEPRAZOLE 20MG CAP PO SCH (07:18)
[2023-10-06] MEDS: SERTRALINE 100 MG TAB PO SCH (07:18)
[2023-10-06] MEDS: LACTOBACILLUS ACIDOPHILUS CAP (BACID) PO SCH ×4 (07:18→20:32)
[2023-10-06 09:14] VITALS: TEMP 99.3
[2023-10-06 11:34] LABS: BASO % 0.2 % (0.0-1.0); EOS % 0.9 % (0.0-3.0); HEMATOCRIT 29.3 % (36.0-47.0); HEMOGLOBIN 9.5 g/dl (12.0-15.5); LYMPH # 1.2 10^3/uL (1.5-5.0); LYMPH % 26.5 % (24.0-44.0); MEAN CORPUSCULAR HEMOGLOBIN 25.4 pg (27.0-33.0); MEAN CORPUSCULAR HGB CONC 32.4 g/dl (32.0-36.5); MEAN CORPUSCULAR VOLUME 78.3 fl (80.0-96.0); MONO # 0.5 10^3/uL (0.0-0.8); NEUTROPHILS # 2.9 10^3/uL (1.5-8.5); NEUTROPHILS % 62.2 % (36.0-66.0); PLATELET COUNT, AUTOMATED 119 10^3/uL (150-450); RED BLOOD COUNT 3.74 10^6/uL (4.00-5.40); WHITE BLOOD COUNT 4.6 10^3/uL (4.0-10.0)
[2023-10-06 12:13] LABS: BLOOD UREA NITROGEN 11 MG/DL (9-23); CALCIUM LEVEL 7.3 MG/DL (8.3-10.6); CARBON DIOXIDE LEVEL 24 MMOL/L (20-31); CHLORIDE LEVEL 108 MMOL/L (98-107); CREATININE FOR GFR 0.55 MG/DL (0.55-1.30); GLOMERULAR FILTRATION RATE > 60.0 (>39); GLUCOSE, FASTING 86 MG/DL (74-106); POTASSIUM SERUM 2.8 MMOL/L (3.5-5.1); SODIUM LEVEL 141 MMOL/L (136-145)
[2023-10-06] MEDS ORDERED: POTASSIUM CHLORIDE 10MEQ SR TABLET PO ONE (12:15)
[2023-10-06 12:37] LABS: MAGNESIUM LEVEL 1.4 MG/DL (1.8-2.4)
[2023-10-06 14:00] VITALS: BP 127/61; TEMP 100; O2SAT 95
[2023-10-06] MEDS ORDERED: MAG SULF 1GM/100ML (MAG RUN) 1 GM in IV 1 EA IV ONE (14:00)
[2023-10-06 16:15] VITALS: TEMP 99.4
[2023-10-06 20:14] VITALS: BP 134/75; TEMP 99.5; O2SAT 96
[2023-10-06] MEDS: ATORVASTATIN 20 MG TAB PO SCH (20:32)
[2023-10-06] MEDS: POTASSIUM CHLORIDE 10MEQ SR TABLET PO SCH (20:32)
[2023-10-06] MEDS: LOPERAMIDE 2 MG CAPLET PO PRN (20:43)
[2023-10-06] MEDS: ACETAMINOPHEN TAB 650MG DOSE (2X325MG) PO PRN (20:44)
[2023-10-07 02:08] VITALS: TEMP 97.8
[2023-10-07] MEDS: metroNIDAZOLE 500 MG in IV 1 EA IV SCH ×2 (02:08→10:08)
[2023-10-07 05:33] VITALS: BP 124/72; TEMP 97; O2SAT 96
[2023-10-07] MEDS: cefTRIAXone SOD 2 GM in D5W MINI-BAG PLUS 50 ML IV SCH (08:25)
[2023-10-07] MEDS: POTASSIUM CHLORIDE 10MEQ SR TABLET PO SCH (08:25)
[2023-10-07 08:26] VITALS: BP 132/69
[2023-10-07] MEDS: SERTRALINE 100 MG TAB PO SCH (08:26)
[2023-10-07] MEDS: OMEPRAZOLE 20MG CAP PO SCH (08:26)
[2023-10-07] MEDS: LACTOBACILLUS ACIDOPHILUS CAP (BACID) PO SCH ×2 (08:26→12:45)
[2023-10-07] MEDS ORDERED: AMLO1TAB25 PO (10:00)
[2023-10-07] MEDS ORDERED: CALCIUM GLUCONATE 1,000 MG in D5W MINI-BAG PLUS 100 ML IV ONE (10:00)
[2023-10-07] MEDS ORDERED: CEFD1CAP9 PO (10:01)
[2023-10-07] MEDS ORDERED: BACI1CAP PO (10:01)
[2023-10-07] MEDS ORDERED: METR-265 PO (10:03)
[2023-10-07] MEDS: LOPERAMIDE 2 MG CAPLET PO PRN (10:16)
[2023-10-07] MEDS ORDERED: MAG SULF 1GM/100ML (MAG RUN) 1 GM in IV 1 EA IV ONE (10:30)
[2023-10-07] MEDS ORDERED: MAGNESIUM OXIDE 400MG TAB (MAG-OX) PO ONE (10:30)
[2023-10-07 10:37] LABS: IONIZED CALCIUM 4.4 MG/DL (4.5-5.3)
[2023-10-07 10:41] LABS: BASO % 0.2 % (0.0-1.0); EOS # 0.1 10^3/uL (0.0-0.5); HEMATOCRIT 32.7 % (36.0-47.0); HEMOGLOBIN 10.5 g/dl (12.0-15.5); LYMPH # 1.1 10^3/uL (1.5-5.0); LYMPH % 27.3 % (24.0-44.0); MEAN CORPUSCULAR HEMOGLOBIN 25.4 pg (27.0-33.0); MEAN CORPUSCULAR HGB CONC 32.1 g/dl (32.0-36.5); MONO # 0.4 10^3/uL (0.0-0.8); MONO % 9.5 % (2.0-8.0); NEUTROPHILS # 2.5 10^3/uL (1.5-8.5); NEUTROPHILS % 60.8 % (36.0-66.0); PLATELET COUNT, AUTOMATED 153 10^3/uL (150-450); RED BLOOD COUNT 4.14 10^6/uL (4.00-5.40); WHITE BLOOD COUNT 4.1 10^3/uL (4.0-10.0)
[2023-10-07 11:15] LABS: BLOOD UREA NITROGEN 9 MG/DL (9-23); CALCIUM LEVEL 7.7 MG/DL (8.3-10.6); CARBON DIOXIDE LEVEL 26 MMOL/L (20-31); CHLORIDE LEVEL 111 MMOL/L (98-107); CREATININE FOR GFR 0.53 MG/DL (0.55-1.30); GLOMERULAR FILTRATION RATE > 60.0 (>39); GLUCOSE, FASTING 140 MG/DL (74-106); MAGNESIUM LEVEL 1.6 MG/DL (1.8-2.4); POTASSIUM SERUM 3.9 MMOL/L (3.5-5.1); SODIUM LEVEL 143 MMOL/L (136-145)
== END 2023-10-07 14:30 | disposition home or self-care (01) | DRG 690 ==
LOC: M ED 07:51 → M ED INP 15:43 → OBSVTOIN 15:43 → ENRESERV 16:02 → M MSPAV 16:46
PROVIDERS: ADMIT General Practice; ATTEND General Practice
DX: N39.0 Urinary tract infection, site not specified (principal); B96.20 Unspecified Escherichia coli [E. coli] as the cause of diseases classified elsewhere; F41.9 Anxiety disorder, unspecified; E78.5 Hyperlipidemia, unspecified; K21.9 Gastro-esophageal reflux disease without esophagitis; R42 Dizziness and giddiness; I10 Essential (primary) hypertension; K52.9 Noninfective gastroenteritis and colitis, unspecified; Z79.899 Other long term (current) drug therapy; Z20.822 Contact with and (suspected) exposure to COVID-19; E83.42 Hypomagnesemia; E87.6 Hypokalemia; F32.A Depression, unspecified

== ENCOUNTER → 2023-10-31 | Outpatient (REF) | payer MEDICARE ==
[~2023-10-31] MED LIST changes: +AMLO1TAB25 PO; +BACI1CAP PO; +CEFD1CAP9 PO; +METR-265 PO
== END ==
LOC: M LAB REF 16:42
PROVIDERS: ATTEND Family Medicine
DX: N39.0 Urinary tract infection, site not specified (principal)

== ENCOUNTER → 2023-11-12 | Outpatient (CLI) | payer MEDICARE | LOC: M WHC 10:00 | PROVIDERS: ATTEND Family Medicine | DX: Z12.31 Encounter for screening mammogram for malignant neoplasm of breast (principal) ==

== ENCOUNTER → 2023-11-19 | Outpatient (REF) | payer MEDICARE | LOC: M LAB REF 16:18 | PROVIDERS: ATTEND Family Medicine | DX: N39.0 Urinary tract infection, site not specified (principal) ==

== ENCOUNTER → 2024-01-24 | Outpatient (REF) | payer MEDICARE, OTHER | LOC: M LAB REF 16:34 | PROVIDERS: ATTEND Family Medicine | DX: N39.0 Urinary tract infection, site not specified (principal) ==

== ENCOUNTER → 2024-03-13 | Outpatient (REF) | payer MEDICARE, OTHER | LOC: M LAB REF 10:11 | PROVIDERS: ATTEND Family Medicine | DX: R19.5 Other fecal abnormalities (principal) ==

== ENCOUNTER → 2024-07-09 | Outpatient (REF) | payer MEDICARE, OTHER | LOC: M LAB REF 10:28 | PROVIDERS: ATTEND Family Medicine | DX: L29.0 Pruritus ani (principal) ==

== ENCOUNTER 2024-09-28 08:53 | Emergency (ER) | payer OTHER, MEDICARE ==
[~2024-09-28] VITALS: Ht 157.5 cm; Wt 73.6 kg
[~2024-09-28 08:53] MED LIST changes: -DESL5TAB28 PO; +DESL5TAB30 PO
[2024-09-28 09:18] VITALS: BP 144/77; TEMP 96.4; O2SAT 96
[2024-09-28 10:22] LABS: BASO % 0.3 % (0.0-1.0); EOS # 0.1 10^3/uL (0.0-0.5); EOS % 1.8 % (0.0-3.0); HEMATOCRIT 37.2 % (36.0-47.0); LYMPH # 1.4 10^3/uL (1.5-5.0); LYMPH % 21.4 % (24.0-44.0); MEAN CORPUSCULAR HEMOGLOBIN 25.8 pg (27.0-33.0); MEAN CORPUSCULAR HGB CONC 32.3 g/dl (32.0-36.5); MONO # 0.5 10^3/uL (0.0-0.8); MONO % 8.1 % (2.0-8.0); NEUTROPHILS # 4.5 10^3/uL (1.5-8.5); NEUTROPHILS % 68.2 % (36.0-66.0); PLATELET COUNT, AUTOMATED 203 10^3/uL (150-450); RED BLOOD COUNT 4.65 10^6/uL (4.00-5.40); WHITE BLOOD COUNT 6.5 10^3/uL (4.0-10.0)
[2024-09-28 10:53] LABS: ALBUMIN 3.4 G/DL (3.2-5.2); ALKALINE PHOSPHATASE 68 U/L (35-104); ALT/SGPT < 9 U/L (7.0-40); AST/SGOT 12 U/L (<34); BILIRUBIN,DIRECT 0.2 MG/DL (<0.4); BILIRUBIN,TOTAL 0.7 MG/DL (0.3-1.2); BLOOD UREA NITROGEN 17 MG/DL (9-23); CALCIUM LEVEL 9.4 MG/DL (8.3-10.6); CARBON DIOXIDE LEVEL 29 MMOL/L (20-31); CHLORIDE LEVEL 105 MMOL/L (98-107); CREATININE FOR GFR 0.75 MG/DL (0.55-1.30); GLOMERULAR FILTRATION RATE > 60.0 (>39); GLUCOSE, FASTING 102 MG/DL (74-106); POTASSIUM SERUM 4.1 MMOL/L (3.5-5.1); SODIUM LEVEL 143 MMOL/L (136-145); TOTAL PROTEIN 6.3 G/DL (5.7-8.2)
[2024-09-28 10:54] LABS: THYROXINE (T4) 9.1 UG/DL (4.5-10.9)
[2024-09-28 10:55] LABS: THYROID STIMULATING HORMONE 0.242 uIU/ML (0.55-4.78)
[2024-09-28] MEDS ORDERED: VENTAER INH (12:34)
== END 2024-09-28 12:51 | disposition home or self-care (01) ==
LOC: M ED 08:53
DX: J06.9 Acute upper respiratory infection, unspecified (principal); B34.8 Other viral infections of unspecified site; Z90.89 Acquired absence of other organs; Z79.02 Long term (current) use of antithrombotics/antiplatelets; Z79.52 Long term (current) use of systemic steroids; Z79.899 Other long term (current) drug therapy

== ENCOUNTER → 2024-11-16 | Outpatient (CLI) | payer MEDICARE, OTHER ==
[~2024-11-16] MED LIST changes: +VENTAER INH
== END ==
LOC: M WHC 10:55
PROVIDERS: ATTEND Family Medicine
DX: Z12.31 Encounter for screening mammogram for malignant neoplasm of breast (principal)

== ENCOUNTER → 2025-07-28 | Outpatient (REF) | payer MEDICARE, OTHER | LOC: M LAB REF 10:47 | PROVIDERS: ATTEND Internal Medicine Gastroenterology | DX: R19.7 Diarrhea, unspecified (principal) ==

== ENCOUNTER → 2025-08-18 | Outpatient (REF) | payer MEDICARE, OTHER ==
[2025-08-18 17:36] LABS: APPEARANCE, URINE CLOUDY (CLEAR); BACTERIA, URINE AUTO 1+ (NEGATIVE); BILIRUBIN, URINE AUTO NEGATIVE (NEGATIVE); BLOOD, URINE BLOOD 2+ (NEGATIVE); GLUCOSE, URINE (UA) AUTO NEGATIVE (NEGATIVE); KETONE, URINE AUTO NEGATIVE (NEGATIVE); LEUKOCYTE ESTERASE, URINE AUTO 3+ (NEGATIVE); MUCUS, URINE SMALL (NEGATIVE); NITRITE, URINE AUTO POSITIVE (NEGATIVE); PROTEIN, URINE AUTO NEGATIVE (NEGATIVE); RBC, URINE AUTO 5 /HPF (0-3); SPECIFIC GRAVITY URINE AUTO 1.019 (1.002-1.035); SQUAMOUS EPITHELIAL CELL UR AU 16 /HPF (0-6); TRANSITIONAL EPITHELIAL AUTO <1 /HPF; UROBILINOGEN, URINE AUTO 0.2 mg/dL (0.0-2.0); WBC, URINE AUTO 40 /HPF (0-3)
== END ==
LOC: M LAB REF 16:41
DX: N81.10 Cystocele, unspecified (principal); N39.41 Urge incontinence

== ENCOUNTER → 2025-09-09 | Outpatient (REF) | payer MEDICARE, OTHER ==
[2025-09-10 13:03] LABS: APPEARANCE, URINE CLOUDY (CLEAR); BACTERIA, URINE AUTO 1+ (NEGATIVE); BILIRUBIN, URINE AUTO NEGATIVE (NEGATIVE); BLOOD, URINE BLOOD 2+ (NEGATIVE); CALCIUM OXALATE CRYSTALS MODERATE; GLUCOSE, URINE (UA) AUTO NEGATIVE (NEGATIVE); KETONE, URINE AUTO NEGATIVE (NEGATIVE); LEUKOCYTE ESTERASE, URINE AUTO 3+ (NEGATIVE); MUCUS, URINE SMALL (NEGATIVE); NITRITE, URINE AUTO NEGATIVE (NEGATIVE); PROTEIN, URINE AUTO 1+ mg/dL (NEGATIVE); RBC, URINE AUTO 3 /HPF (0-3); SPECIFIC GRAVITY URINE AUTO 1.019 (1.002-1.035); SQUAMOUS EPITHELIAL CELL UR AU 4 /HPF (0-6); UROBILINOGEN, URINE AUTO 0.2 mg/dL (0.0-2.0); WBC, URINE AUTO 117 /HPF (0-3)
== END ==
LOC: M SMT 11:32
PROVIDERS: ATTEND Nurse Practitioner Family
DX: N39.41 Urge incontinence (principal)